=== PATIENT | male | born 1960 | race Caucasian/White ===

== ENCOUNTER 2021-08-03 12:57 | Outpatient (CLI) | payer BC | END 2021-08-03 12:58 | disposition home or self-care (01) | LOC: CSHWCC 12:57 | PROVIDERS: ATTEND Nurse Practitioner Family | DX: L97.516 Non-pressure chronic ulcer of other part of right foot with bone involvement without evidence of necrosis (principal); R60.0 Localized edema | CPT/HCPCS: 99204; G0463 ==

== ENCOUNTER 2021-08-10 14:58 | Outpatient (CLI) | payer BC | END 2021-08-10 14:59 | disposition home or self-care (01) | LOC: CSHWCC 14:58 | PROVIDERS: ATTEND Nurse Practitioner Family | DX: L97.519 Non-pressure chronic ulcer of other part of right foot with unspecified severity (principal); R60.0 Localized edema | CPT/HCPCS: 29581; 99213; G0463 ==

== ENCOUNTER 2021-08-17 13:49 | Outpatient (CLI) | payer BC | END 2021-08-17 13:50 | disposition home or self-care (01) | LOC: CSHWCC 13:49 | PROVIDERS: ATTEND Nurse Practitioner Family | DX: L97.519 Non-pressure chronic ulcer of other part of right foot with unspecified severity (principal); R60.0 Localized edema | CPT/HCPCS: 29581; 97607 ==

== ENCOUNTER 2021-08-19 14:45 | Outpatient (CLI) | payer BC | END 2021-08-19 14:46 | disposition home or self-care (01) | LOC: CSHWCC 14:45 | PROVIDERS: ATTEND Nurse Practitioner Family | DX: L97.519 Non-pressure chronic ulcer of other part of right foot with unspecified severity (principal); R60.0 Localized edema | CPT/HCPCS: 29581; 97607 ==

== ENCOUNTER 2021-08-28 08:02 | Outpatient (CLI) | payer BC | END 2021-08-28 08:03 | disposition home or self-care (01) | LOC: CSHWCC 08:02 | PROVIDERS: ATTEND Nurse Practitioner Family | DX: L97.519 Non-pressure chronic ulcer of other part of right foot with unspecified severity (principal); R60.0 Localized edema | CPT/HCPCS: 29581; 97607 ==

== ENCOUNTER 2021-08-31 13:26 | Outpatient (CLI) | payer BC | END 2021-08-31 13:27 | disposition home or self-care (01) | LOC: CSHWCC 13:26 | PROVIDERS: ATTEND Nurse Practitioner Family | DX: L97.519 Non-pressure chronic ulcer of other part of right foot with unspecified severity (principal); R60.0 Localized edema ==

== ENCOUNTER 2021-09-25 08:17 | Outpatient (CLI) | payer BC | END 2021-09-25 08:18 | disposition home or self-care (01) | LOC: CSHWCC 08:17 | PROVIDERS: ATTEND Nurse Practitioner Family | DX: L97.516 Non-pressure chronic ulcer of other part of right foot with bone involvement without evidence of necrosis (principal); R60.0 Localized edema ==

== ENCOUNTER 2021-09-30 14:00 | Outpatient (CLI) | payer BC | END 2021-09-30 14:01 | disposition home or self-care (01) | LOC: CSHWCC 14:00 | PROVIDERS: ATTEND Nurse Practitioner Family | DX: L97.516 Non-pressure chronic ulcer of other part of right foot with bone involvement without evidence of necrosis (principal); R60.0 Localized edema | CPT/HCPCS: 29581; 97605 ==

== ENCOUNTER 2021-10-05 10:38 | Outpatient (CLI) | payer BC | END 2021-10-05 10:39 | disposition home or self-care (01) | LOC: CSHWCC 10:38 | PROVIDERS: ATTEND Nurse Practitioner Family | DX: L97.516 Non-pressure chronic ulcer of other part of right foot with bone involvement without evidence of necrosis (principal); R60.0 Localized edema | CPT/HCPCS: 29581; 97605 ==

== ENCOUNTER 2021-10-19 12:45 | Outpatient (CLI) | payer BC | END 2021-10-19 12:46 | disposition home or self-care (01) | LOC: CSHWCC 12:45 | PROVIDERS: ATTEND Nurse Practitioner Family | DX: L97.516 Non-pressure chronic ulcer of other part of right foot with bone involvement without evidence of necrosis (principal); R60.0 Localized edema | CPT/HCPCS: 29581; 87070; 87205; 99213; G0463 ==

== ENCOUNTER 2021-10-23 08:02 | Outpatient (CLI) | payer BC | END 2021-10-23 08:03 | disposition home or self-care (01) | LOC: CSHWCC 08:02 | PROVIDERS: ATTEND Nurse Practitioner Family | DX: L97.516 Non-pressure chronic ulcer of other part of right foot with bone involvement without evidence of necrosis (principal); R60.0 Localized edema | CPT/HCPCS: 29581; 99212; G0463 ==

== ENCOUNTER 2021-10-26 11:23 | Outpatient (CLI) | payer BC | END 2021-10-26 11:24 | disposition home or self-care (01) | LOC: CSHWCC 11:23 | PROVIDERS: ATTEND Nurse Practitioner Family | DX: L97.516 Non-pressure chronic ulcer of other part of right foot with bone involvement without evidence of necrosis (principal); R60.0 Localized edema | CPT/HCPCS: 29581; 99212; G0463 ==

== ENCOUNTER 2021-10-30 08:05 | Outpatient (CLI) | payer BC | END 2021-10-30 08:06 | disposition home or self-care (01) | LOC: CSHWCC 08:05 | PROVIDERS: ATTEND Nurse Practitioner Family | DX: L97.516 Non-pressure chronic ulcer of other part of right foot with bone involvement without evidence of necrosis (principal); R60.0 Localized edema | CPT/HCPCS: 11042; 29581 ==

== ENCOUNTER 2021-11-02 12:55 | Outpatient (CLI) | payer BC | END 2021-11-02 12:56 | disposition home or self-care (01) | LOC: CSHWCC 12:55 | PROVIDERS: ATTEND Nurse Practitioner Family | DX: L97.516 Non-pressure chronic ulcer of other part of right foot with bone involvement without evidence of necrosis (principal); R60.0 Localized edema | CPT/HCPCS: 29581; 99213; G0463 ==

== ENCOUNTER 2021-11-06 08:13 | Outpatient (CLI) | payer BC | END 2021-11-06 08:14 | disposition home or self-care (01) | LOC: CSHWCC 08:13 | PROVIDERS: ATTEND Nurse Practitioner Family | DX: L97.516 Non-pressure chronic ulcer of other part of right foot with bone involvement without evidence of necrosis (principal); R60.0 Localized edema ==

== ENCOUNTER 2021-11-09 13:01 | Outpatient (CLI) | payer BC | END 2021-11-09 13:02 | disposition home or self-care (01) | LOC: CSHWCC 13:01 | PROVIDERS: ATTEND Nurse Practitioner Family | DX: L97.516 Non-pressure chronic ulcer of other part of right foot with bone involvement without evidence of necrosis (principal); R60.0 Localized edema | CPT/HCPCS: 29581; 36416; 99212; G0463 ==

== ENCOUNTER 2021-11-13 08:08 | Outpatient (CLI) | payer BC | END 2021-11-13 08:09 | disposition home or self-care (01) | LOC: CSHWCC 08:08 | PROVIDERS: ATTEND Nurse Practitioner Family | DX: L97.516 Non-pressure chronic ulcer of other part of right foot with bone involvement without evidence of necrosis (principal); R60.0 Localized edema | CPT/HCPCS: 29581; 99213; G0463 ==

== ENCOUNTER 2021-11-16 12:58 | Outpatient (CLI) | payer BC | END 2021-11-16 12:59 | disposition home or self-care (01) | LOC: CSHWCC 12:58 | PROVIDERS: ATTEND Nurse Practitioner Family | DX: L97.516 Non-pressure chronic ulcer of other part of right foot with bone involvement without evidence of necrosis (principal); S91.104D Unspecified open wound of right lesser toe(s) without damage to nail, subsequent encounter; R60.0 Localized edema | CPT/HCPCS: 29581; 99213; G0463 ==

== ENCOUNTER 2021-11-24 13:57 | Outpatient (CLI) | payer BC | END 2021-11-24 13:58 | disposition home or self-care (01) | LOC: CSHWCC 13:57 | PROVIDERS: ATTEND Nurse Practitioner Family | DX: L97.516 Non-pressure chronic ulcer of other part of right foot with bone involvement without evidence of necrosis (principal); S91.104D Unspecified open wound of right lesser toe(s) without damage to nail, subsequent encounter; R60.0 Localized edema | CPT/HCPCS: 99213; G0463 ==

== ENCOUNTER 2021-11-24 18:52 | Emergency (ER) | payer BC | END 2021-11-24 21:53 | disposition home or self-care (01) | LOC: CSHERS 18:52 | DX: S00.11XA Contusion of right eyelid and periocular area, initial encounter (principal); S50.11XA Contusion of right forearm, initial encounter; I10 Essential (primary) hypertension; W18.30XA Fall on same level, unspecified, initial encounter | CPT/HCPCS: 70450; 72125 ==

== ENCOUNTER 2021-11-27 07:38 | Outpatient (CLI) | payer BC | END 2021-11-27 07:39 | disposition home or self-care (01) | LOC: CSHWCC 07:38 | PROVIDERS: ATTEND Nurse Practitioner Family | DX: L97.516 Non-pressure chronic ulcer of other part of right foot with bone involvement without evidence of necrosis (principal); R60.0 Localized edema | CPT/HCPCS: 29581 ==

== ENCOUNTER 2021-11-30 09:17 | Outpatient (CLI) | payer BC | END 2021-11-30 09:18 | disposition home or self-care (01) | LOC: CSHWCC 09:17 | PROVIDERS: ATTEND Nurse Practitioner Family | DX: L97.516 Non-pressure chronic ulcer of other part of right foot with bone involvement without evidence of necrosis (principal); R60.0 Localized edema | CPT/HCPCS: 29581 ==

== ENCOUNTER 2021-12-04 08:15 | Outpatient (CLI) | payer BC | END 2021-12-04 08:16 | disposition home or self-care (01) | LOC: CSHWCC 08:15 | PROVIDERS: ATTEND Nurse Practitioner Family | DX: I87.331 Chronic venous hypertension (idiopathic) with ulcer and inflammation of right lower extremity (principal); L97.516 Non-pressure chronic ulcer of other part of right foot with bone involvement without evidence of necrosis; L97.812 Non-pressure chronic ulcer of other part of right lower leg with fat layer exposed; R60.0 Localized edema | CPT/HCPCS: 29581 ==

== ENCOUNTER 2021-12-07 10:45 | Outpatient (CLI) | payer BC | END 2021-12-07 10:46 | disposition home or self-care (01) | LOC: CSHWCC 10:45 | PROVIDERS: ATTEND Nurse Practitioner Family | DX: I87.331 Chronic venous hypertension (idiopathic) with ulcer and inflammation of right lower extremity (principal); L97.516 Non-pressure chronic ulcer of other part of right foot with bone involvement without evidence of necrosis; L97.812 Non-pressure chronic ulcer of other part of right lower leg with fat layer exposed; R60.0 Localized edema; L97.412 Non-pressure chronic ulcer of right heel and midfoot with fat layer exposed | CPT/HCPCS: 29581 ==

== ENCOUNTER 2021-12-11 08:14 | Outpatient (CLI) | payer BC | END 2021-12-11 08:15 | disposition home or self-care (01) | LOC: CSHWCC 08:14 | PROVIDERS: ATTEND Nurse Practitioner Family | DX: I87.331 Chronic venous hypertension (idiopathic) with ulcer and inflammation of right lower extremity (principal); L97.812 Non-pressure chronic ulcer of other part of right lower leg with fat layer exposed; L97.516 Non-pressure chronic ulcer of other part of right foot with bone involvement without evidence of necrosis; R60.0 Localized edema | CPT/HCPCS: 29581; 99213; G0463 ==

== ENCOUNTER 2021-12-14 09:16 | Outpatient (CLI) | payer BC | END 2021-12-14 09:17 | disposition home or self-care (01) | LOC: CSHWCC 09:16 | PROVIDERS: ATTEND Nurse Practitioner Family | DX: I87.331 Chronic venous hypertension (idiopathic) with ulcer and inflammation of right lower extremity (principal); L97.812 Non-pressure chronic ulcer of other part of right lower leg with fat layer exposed; L97.516 Non-pressure chronic ulcer of other part of right foot with bone involvement without evidence of necrosis; L97.412 Non-pressure chronic ulcer of right heel and midfoot with fat layer exposed; R60.0 Localized edema | CPT/HCPCS: 29581 ==

== ENCOUNTER 2021-12-18 08:08 | Outpatient (CLI) | payer BC | END 2021-12-18 08:09 | disposition home or self-care (01) | LOC: CSHWCC 08:08 | PROVIDERS: ATTEND Nurse Practitioner Family | DX: I87.331 Chronic venous hypertension (idiopathic) with ulcer and inflammation of right lower extremity (principal); L97.412 Non-pressure chronic ulcer of right heel and midfoot with fat layer exposed; L97.516 Non-pressure chronic ulcer of other part of right foot with bone involvement without evidence of necrosis; R60.0 Localized edema ==

== ENCOUNTER 2021-12-21 09:54 | Outpatient (CLI) | payer BC | END 2021-12-21 09:55 | disposition home or self-care (01) | LOC: CSHWCC 09:54 | PROVIDERS: ATTEND Nurse Practitioner Family | DX: I87.331 Chronic venous hypertension (idiopathic) with ulcer and inflammation of right lower extremity (principal); L97.412 Non-pressure chronic ulcer of right heel and midfoot with fat layer exposed; L97.516 Non-pressure chronic ulcer of other part of right foot with bone involvement without evidence of necrosis; R60.0 Localized edema ==

== ENCOUNTER 2021-12-25 08:08 | Outpatient (CLI) | payer BC | END 2021-12-25 08:09 | disposition home or self-care (01) | LOC: CSHWCC 08:08 | PROVIDERS: ATTEND Nurse Practitioner Family | DX: I87.331 Chronic venous hypertension (idiopathic) with ulcer and inflammation of right lower extremity (principal); L97.412 Non-pressure chronic ulcer of right heel and midfoot with fat layer exposed; R60.0 Localized edema | CPT/HCPCS: 29581 ==

== ENCOUNTER 2021-12-29 09:11 | Outpatient (CLI) | payer BC | END 2021-12-29 09:12 | disposition home or self-care (01) | LOC: CSHWCC 09:11 | PROVIDERS: ATTEND Nurse Practitioner Family | DX: I87.331 Chronic venous hypertension (idiopathic) with ulcer and inflammation of right lower extremity (principal); L97.412 Non-pressure chronic ulcer of right heel and midfoot with fat layer exposed; L97.516 Non-pressure chronic ulcer of other part of right foot with bone involvement without evidence of necrosis; R60.0 Localized edema ==

== ENCOUNTER 2022-02-04 11:52 | Outpatient (CLI) | payer BC | END 2022-02-04 11:53 | disposition home or self-care (01) | LOC: CSHWCC 11:52 | PROVIDERS: ATTEND Nurse Practitioner Family | DX: I87.331 Chronic venous hypertension (idiopathic) with ulcer and inflammation of right lower extremity (principal); L97.412 Non-pressure chronic ulcer of right heel and midfoot with fat layer exposed; L97.516 Non-pressure chronic ulcer of other part of right foot with bone involvement without evidence of necrosis; R60.0 Localized edema ==

== ENCOUNTER 2022-02-18 08:52 | Outpatient (CLI) | payer BC | END 2022-02-18 08:53 | disposition home or self-care (01) | LOC: CSHWCC 08:52 | PROVIDERS: ATTEND Family Medicine | DX: L89.322 Pressure ulcer of left buttock, stage 2 (principal); T81.89XD Other complications of procedures, not elsewhere classified, subsequent encounter; I87.331 Chronic venous hypertension (idiopathic) with ulcer and inflammation of right lower extremity; L97.412 Non-pressure chronic ulcer of right heel and midfoot with fat layer exposed; R60.0 Localized edema; Z93.2 Ileostomy status | CPT/HCPCS: 97605 ==

== ENCOUNTER 2022-04-16 08:00 | Outpatient (CLI) | payer BC | END 2022-04-16 08:01 | disposition home or self-care (01) | LOC: CSHWCC 08:00 | PROVIDERS: ATTEND Preventive Medicine Undersea and Hyperbaric Medicine | DX: T81.89XD Other complications of procedures, not elsewhere classified, subsequent encounter (principal); R60.0 Localized edema; Z93.2 Ileostomy status | CPT/HCPCS: 97605; 99214; G0463 ==

== ENCOUNTER 2022-04-20 10:42 | Outpatient (CLI) | payer BC | END 2022-04-20 10:43 | disposition home or self-care (01) | LOC: CSHWCC 10:42 | PROVIDERS: ATTEND Nurse Practitioner Family | DX: T81.89XD Other complications of procedures, not elsewhere classified, subsequent encounter (principal); R60.0 Localized edema | CPT/HCPCS: 97605 ==

== ENCOUNTER 2022-04-23 09:09 | Outpatient (CLI) | payer BC | END 2022-04-23 09:10 | disposition home or self-care (01) | LOC: CSHWCC 09:09 | PROVIDERS: ATTEND Nurse Practitioner Family | DX: T81.89XD Other complications of procedures, not elsewhere classified, subsequent encounter (principal); R60.0 Localized edema | CPT/HCPCS: 97605; 99213; G0463 ==

== ENCOUNTER 2022-04-23 10:53 | Outpatient (CLI) | payer BC | END 2022-04-23 10:54 | disposition home or self-care (01) | LOC: CSHWCC 10:53 | PROVIDERS: ATTEND Family Medicine | DX: T81.89XD Other complications of procedures, not elsewhere classified, subsequent encounter (principal); R60.0 Localized edema; Z93.2 Ileostomy status | CPT/HCPCS: 36416 ==

== ENCOUNTER 2022-05-07 09:23 | Outpatient (CLI) | payer BC | END 2022-05-07 09:24 | disposition home or self-care (01) | LOC: CSHWCC 09:23 | PROVIDERS: ATTEND Nurse Practitioner Family | DX: T81.89XD Other complications of procedures, not elsewhere classified, subsequent encounter (principal); Z93.2 Ileostomy status | CPT/HCPCS: 97605 ==

== ENCOUNTER 2022-05-11 09:35 | Outpatient (CLI) | payer BC | END 2022-05-11 09:36 | disposition home or self-care (01) | LOC: CSHWCC 09:35 | PROVIDERS: ATTEND Nurse Practitioner Family | DX: T81.89XD Other complications of procedures, not elsewhere classified, subsequent encounter (principal); Z93.2 Ileostomy status | CPT/HCPCS: 11042; 97605 ==

== ENCOUNTER 2022-05-14 09:07 | Outpatient (CLI) | payer BC | END 2022-05-14 09:08 | disposition home or self-care (01) | LOC: CSHWCC 09:07 | PROVIDERS: ATTEND Nurse Practitioner Family | DX: T81.89XD Other complications of procedures, not elsewhere classified, subsequent encounter (principal) | CPT/HCPCS: 97605 ==

== ENCOUNTER 2022-05-18 09:54 | Outpatient (CLI) | payer BC | END 2022-05-18 09:55 | disposition home or self-care (01) | LOC: CSHWCC 09:54 | PROVIDERS: ATTEND Nurse Practitioner Family | DX: T81.89XD Other complications of procedures, not elsewhere classified, subsequent encounter (principal); Z90.3 Acquired absence of stomach [part of] | CPT/HCPCS: 97605 ==

== ENCOUNTER 2022-05-24 11:25 | Outpatient (CLI) | payer BC ==
[~2022-05-24 11:25] MED LIST: Iopamidol 300 61% 100 ML VIAL FS ONE
== END 2022-05-24 11:26 | disposition home or self-care (01) ==
LOC: CSHCT 11:25
PROVIDERS: ATTEND Surgery
DX: K65.9 Peritonitis, unspecified (principal)
CPT/HCPCS: 74177

== ENCOUNTER 2022-05-25 09:45 | Outpatient (CLI) | payer BC | END 2022-05-25 09:46 | disposition home or self-care (01) | LOC: CSHWCC 09:45 | PROVIDERS: ATTEND Nurse Practitioner Family | DX: T81.89XD Other complications of procedures, not elsewhere classified, subsequent encounter (principal) ==

== ENCOUNTER 2022-05-28 09:12 | Outpatient (CLI) | payer BC | END 2022-05-28 09:13 | disposition home or self-care (01) | LOC: CSHWCC 09:12 | PROVIDERS: ATTEND Nurse Practitioner Family | DX: T81.89XD Other complications of procedures, not elsewhere classified, subsequent encounter (principal) ==

== ENCOUNTER 2022-06-04 08:44 | Outpatient (CLI) | payer BC | END 2022-06-04 08:45 | disposition home or self-care (01) | LOC: CSHWCC 08:44 | PROVIDERS: ATTEND Nurse Practitioner Family | DX: T81.89XD Other complications of procedures, not elsewhere classified, subsequent encounter (principal) | CPT/HCPCS: 11042 ==

== ENCOUNTER 2022-06-10 12:50 | Outpatient (CLI) | payer BC | END 2022-06-10 12:51 | disposition home or self-care (01) | LOC: CSHWCC 12:50 | PROVIDERS: ATTEND Nurse Practitioner Family | DX: T81.89XD Other complications of procedures, not elsewhere classified, subsequent encounter (principal) | CPT/HCPCS: 99213; G0463 ==

== ENCOUNTER 2022-06-17 13:34 | Outpatient (CLI) | payer BC | END 2022-06-17 13:35 | disposition home or self-care (01) | LOC: CSHWCC 13:34 | PROVIDERS: ATTEND Nurse Practitioner Family | DX: T81.89XD Other complications of procedures, not elsewhere classified, subsequent encounter (principal) ==

== ENCOUNTER 2022-06-24 09:44 | Outpatient (CLI) | payer BC | END 2022-06-24 09:45 | disposition home or self-care (01) | LOC: CSHWCC 09:44 | PROVIDERS: ATTEND Nurse Practitioner Family | DX: T81.89XD Other complications of procedures, not elsewhere classified, subsequent encounter (principal) ==

== ENCOUNTER 2022-07-01 09:12 | Outpatient (CLI) | payer BC | END 2022-07-01 09:13 | disposition home or self-care (01) | LOC: CSHWCC 09:12 | PROVIDERS: ATTEND Nurse Practitioner Family | DX: T81.89XD Other complications of procedures, not elsewhere classified, subsequent encounter (principal); Z93.2 Ileostomy status ==

== ENCOUNTER 2022-08-05 10:59 | Outpatient (CLI) | payer BC | END 2022-08-05 11:00 | disposition home or self-care (01) | LOC: CSHWCC 10:59 | PROVIDERS: ATTEND Nurse Practitioner Family | DX: T81.89XD Other complications of procedures, not elsewhere classified, subsequent encounter (principal); L89.312 Pressure ulcer of right buttock, stage 2 | CPT/HCPCS: 11042; 99213; G0463 ==

== ENCOUNTER 2022-08-19 09:45 | Outpatient (CLI) | payer BC | END 2022-08-19 09:46 | disposition home or self-care (01) | LOC: CSHWCC 09:45 | PROVIDERS: ATTEND Nurse Practitioner Family | DX: T81.89XD Other complications of procedures, not elsewhere classified, subsequent encounter (principal); L89.312 Pressure ulcer of right buttock, stage 2 ==

== ENCOUNTER 2022-08-19 13:32 | Outpatient (CLI) | payer BC | END 2022-08-19 13:33 | disposition home or self-care (01) | LOC: CSHCT 13:32 | PROVIDERS: ATTEND Surgery | DX: K65.1 Peritoneal abscess (principal) | CPT/HCPCS: 74177; 82565; Q9967 ==

== ENCOUNTER 2022-09-02 09:43 | Outpatient (CLI) | payer BC | END 2022-09-02 09:44 | disposition home or self-care (01) | LOC: CSHWCC 09:43 | PROVIDERS: ATTEND Nurse Practitioner Family | DX: T81.89XD Other complications of procedures, not elsewhere classified, subsequent encounter (principal); S31.603D Unspecified open wound of abdominal wall, right lower quadrant with penetration into peritoneal cavity, subsequent encounter; Z93.2 Ileostomy status | CPT/HCPCS: 11042; 36416 ==

== ENCOUNTER 2022-09-30 12:57 | Outpatient (CLI) | payer BC | END 2022-09-30 12:58 | disposition home or self-care (01) | LOC: CSHWCC 12:57 | PROVIDERS: ATTEND Nurse Practitioner Family | DX: T81.89XD Other complications of procedures, not elsewhere classified, subsequent encounter (principal); S31.603D Unspecified open wound of abdominal wall, right lower quadrant with penetration into peritoneal cavity, subsequent encounter; Z93.2 Ileostomy status | CPT/HCPCS: 99213; G0463 ==

== ENCOUNTER 2022-10-14 09:40 | Outpatient (CLI) | payer BC | END 2022-10-14 09:41 | disposition home or self-care (01) | LOC: CSHWCC 09:40 | PROVIDERS: ATTEND Nurse Practitioner Family | DX: T81.89XD Other complications of procedures, not elsewhere classified, subsequent encounter (principal); S31.603D Unspecified open wound of abdominal wall, right lower quadrant with penetration into peritoneal cavity, subsequent encounter ==

== ENCOUNTER 2022-12-06 13:04 | Outpatient (CLI) | payer BC | END 2022-12-06 13:05 | disposition home or self-care (01) | LOC: CSHWCC 13:04 | PROVIDERS: ATTEND Nurse Practitioner Family | DX: T81.89XD Other complications of procedures, not elsewhere classified, subsequent encounter (principal); R60.0 Localized edema; I87.311 Chronic venous hypertension (idiopathic) with ulcer of right lower extremity; L97.812 Non-pressure chronic ulcer of other part of right lower leg with fat layer exposed; S21.202D Unspecified open wound of left back wall of thorax without penetration into thoracic cavity, subsequent encounter | CPT/HCPCS: 29581; 99214; G0463 ==

== ENCOUNTER 2023-01-03 13:02 | Outpatient (CLI) | payer BC | END 2023-01-03 13:03 | disposition home or self-care (01) | LOC: CSHWCC 13:02 | PROVIDERS: ATTEND Nurse Practitioner Family | DX: R60.9 Edema, unspecified (principal); I87.311 Chronic venous hypertension (idiopathic) with ulcer of right lower extremity; L97.812 Non-pressure chronic ulcer of other part of right lower leg with fat layer exposed; T81.89XD Other complications of procedures, not elsewhere classified, subsequent encounter | CPT/HCPCS: 11042; 99213; G0463 ==

== ENCOUNTER 2023-02-07 09:33 | Outpatient (CLI) | payer BC | END 2023-02-07 09:34 | disposition home or self-care (01) | LOC: CSHWCC 09:33 | PROVIDERS: ATTEND Nurse Practitioner Family | DX: T81.89XD Other complications of procedures, not elsewhere classified, subsequent encounter (principal); I87.311 Chronic venous hypertension (idiopathic) with ulcer of right lower extremity; L97.812 Non-pressure chronic ulcer of other part of right lower leg with fat layer exposed; R60.0 Localized edema | CPT/HCPCS: 11042 ==

== ENCOUNTER 2023-03-08 11:11 | Outpatient (CLI) | payer BC | END 2023-03-08 11:12 | disposition home or self-care (01) | LOC: CSHWCC 11:11 | PROVIDERS: ATTEND Nurse Practitioner Family | DX: R60.9 Edema, unspecified (principal) | CPT/HCPCS: 99212; G0463 ==

== ENCOUNTER 2023-04-05 07:53 | Outpatient (CLI) | payer BC | END 2023-04-05 07:54 | disposition home or self-care (01) | LOC: CSHCT 07:53 | PROVIDERS: ATTEND Surgery | DX: K63.2 Fistula of intestine (principal) | CPT/HCPCS: 74177; 82565 ==

== ENCOUNTER 2023-05-31 09:36 | Outpatient (CLI) | payer BC | END 2023-05-31 09:37 | disposition home or self-care (01) | LOC: CSHWCC 09:36 | PROVIDERS: ATTEND Physician Assistant | DX: K94.13 Enterostomy malfunction (principal); L24.B3 Irritant contact dermatitis related to fecal or urinary stoma or fistula | CPT/HCPCS: 99212; G0463 ==